=== PATIENT | female | born 1955 | race Caucasian/White ===

== ENCOUNTER 2017-07-24 20:36 | Inpatient (IN) ==
[2017-07-24] MEDS ORDERED: Ipratropium/Albuterol Neb 3 ML IH ONE (21:53)
[2017-07-24] MEDS ORDERED: 0.9 % Sodium Chloride 1,000 ML IVC ONE ×2 (21:53→23:40)
[2017-07-24] MEDS ORDERED: methylPREDNISolone 125 MG/2 ML VIAL IVP ONE (21:53)
--- NOTE | 2017-07-24 22:15 | Emergency Department Note ---
Disposition Clinical Impression: Severe sepsis Pneumonia Qualifiers: Pneumonia type: due to unspecified organism Laterality: left Lung location: lower lobe of lung Qualified Code(s): J18.1 - Lobar pneumonia, unspecified organism Asthma exacerbation Qualifiers: Asthma severity: unspecified severity Asthma persistence: unspecified Qualified Code(s): J45.901 - Unspecified asthma with (acute) exacerbation Disposition: Admitted As Inpatient Condition: Fair Time of Disposition: 23:48 SOB HPI - General Chief Complaint: ED Upper Respiratory Infection Stated Complaint: cough,sob,chills Time Seen by Provider: 07/24/17 21:38 Source: patient Mode of arrival: ambulatory Limitations: no limitations Nursing Notes Reviewed: Yes Vital Signs Reviewed: Yes - History of Present Illness Patient is a 61-year-old female who presents to [facility] ED with a chief complaint of difficulty breathing. States she just had bronco thermal plasty done by Dr. Montoya a few days ago. States she has had this done before but did not have any issues with it. States her grandchildren were visiting recently and they were all sick with viral syndromes. Patient was at the hospital earlier today with a family member when she started developing chills as well as a cough. States she feels like she cannot cough anything up. Denies any nausea, vomiting, chest pain, abdominal pain, problems with urination or bowel movements. Pt Subjective Complaint: shortness of breath Onset (ago): hour(s) Context: recent illness Severity: moderate Consistency/Duration: gradually worsening Improves with: nothing Worsens with: nothing Known history of: asthma Associated symptoms: Reports: fever, cough. Denies: chest pain Treatment prior to arrival: bronchodilator Cough present: Yes Sputum production: No Sputum Amount: None - Related Data Home oxygen amount: none Home Medications Medication Instructions Recorded Confirmed Albuterol Sulfate [Ventolin Hfa] 2 puff IH Q4H PRN 11/12/15 Amlodipine Besylate [Amlodipine 10 mg PO DAILY 11/12/15 Besylate] Fluticasone Propionate [Flonase 1 spr NS BID 11/12/15 07/21/17 Allergy Relief] Lovastatin [Altoprev] 40 mg PO HS 11/12/15 07/21/17 Mometasone/Formoterol [Dulera 200 2 puff IH BID 02/29/16 11/07/17 Mcg/5 Mcg Inhaler] Montelukast [Singulair] 10 mg PO DAILY 11/12/15 07/21/17 PredniSONE [Darius] 5 - 10 mg PO DAILY PRN 11/12/15 07/21/17 Theophylline Anhydrous 400 mg PO BID 11/12/15 07/21/17 [Theophylline] Aspirin 81 mg PO DAILY 07/21/17 07/21/17 Cholecalciferol (Vitamin D3) 50,000 unit PO FR 07/21/17 07/21/17 [Vitamin D] Esomeprazole Magnesium [Nexium] 40 mg PO DAILY 07/21/17 07/21/17 Fish Oil/Dha/Epa [Fish Oil 1,200 1 tab PO DAILY 07/21/17 07/21/17 mg Fish Oil] Losartan/Hydrochlorothiazide 1 tab PO DAILY 07/21/17 07/21/17 [Hyzaar 100-25 Tablet] SUMAtriptan succinate [Imitrex] 25 mg PO Q2H PRN 07/21/17 07/21/17 Verapamil HCl [Verapamil ER] 240 mg PO DAILY 07/21/17 07/21/17 predniSONE [Prednisone] 50 mg PO DAILY 07/21/17 07/21/17 Allergies Allergy/AdvReac Type Severity Reaction Status Date / Time No Known Allergies Allergy Verified 07/24/17 20:56 All systems ED: reviewed and negative except as stated. Past Medical History - Past Medical History Attestation: Yes The following information was validated with the patient. 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 EYES: EOMI, no scleral icterus. NOSE: The nose is normal in appearance without rhinorrhea RESP: Normal chest excursion with respiration; breath sounds with expiratory wheezes bilaterally CARD: Regular rhythm, without murmurs, rub or gallop; tachycardic ABD: Non-distended; non-tender, soft,without rigidity, rebound or guarding SKIN: Normal for age and race; warm and dry; no apparent lesions - General General appearance: alert, in no apparent distress Course Course Narrative: Patient seen and examined. Difficulty breathing along with fever and chills. We will do cardiopulmonary workup along with chest x-ray and flu swab. - Reevaluation(s) Reevaluation #1: Chest x-ray shows a left lower lobe pneumonia. We will go ahead and start on Rocephin and Levaquin. Patient meets criteria for sepsis. Will order another liter of fluids. Blood cultures ordered. I spoke with hospitalist Dr. Richards who has accepted patient for admission. Time: 23:45 Vital Signs Temperature 100.1 F H 07/24/17 20:53 Pulse Rate 108 07/24/17 20:53 Respiratory Rate 18 07/24/17 20:53 Blood Pressure 111/67 07/24/17 20:53 O2 Sat by Pulse Oximetry 95 07/24/17 20:53 Temperature 102.8 F H 07/24/17 21:56 Pulse Rate 108 07/24/17 23:29 Respiratory Rate 16 07/24/17 23:29 Blood Pressure 104/42 07/24/17 23:29 O2 Sat by Pulse Oximetry 93 07/24/17 23:29 Oxygen Delivery Oxygen Delivery Nasal Cannula Shortness of Breath/Dyspnea - Medical Records Medical records reviewed: Yes I reviewed the patient's medical records. - Lab Data Lab results reviewed: Yes I reviewed the patient's lab results. Result diagrams: 07/24/17 22:29 07/24/17 22:29 Lab Results 07/24/17 07/24/17 07/24/17 Range/Units 22:29 22:29 22:29 WBC 14.8 H (4.3-11.1) K/mcL RBC 3.97 (3.82-4.97) M/mcL Hgb 11.0 L (11.5-15.4) g/dL Hct 33.5 L (35.3-44.9) % MCV 84.4 (83.0-100.0) fL MCH 27.7 L (28.0-33.3) pg MCHC 32.8 (31.6-35.5) g/dL RDW 14.3 (11.5-14.5) % Plt Count 234 (140-400) K/mcL MPV 10.8 (9.4-12.4) fL Immature Gran % 0.6 (0-4) % Seg Neutrophils % 76.6 % Lymphocytes % 14.2 % Monocytes % 8.5 % Eosinophils % 0.0 % Basophils % 0.1 % Neutrophils # 11.3 H (1.6-8.9) K/mcL Lymphocytes # 2.1 (0.6-4.6) K/mcL Monocytes # 1.3 (0.0-1.3) K/mcL Eosinophils # 0.0 (0.0-0.6) K/mcL Basophils # 0.0 (0.0-0.2) K/mcL Sodium 136 (136-145) mEq/L Potassium 3.5 (3.5-4.5) mEq/L Chloride 102 (98-109) mEq/L Carbon Dioxide 25 (19-29) mEq/L BUN 15 (7-20) mg/dL Creatinine 0.94 (0.57-1.11) mg/dL Est GFR ( Amer) > 60 (> 60) Est GFR (Non-Af Amer) > 60 (> 60) BUN/Creatinine Ratio 16 (6-26) Glucose 93 (70-99) mg/dL Calculated Osmolality 283 (280-300) Lactic Acid 2.2 (0.5-2.2) mmol/L Calcium 8.4 L (8.6-10.8) mg/dL Magnesium 1.3 L (1.6-2.6) mg/dL Troponin I (0-0.03) ng/mL B-Natriuretic Peptide (0-100) pg/mL 07/24/17 07/24/17 Range/Units 22:29 22:29 WBC (4.3-11.1) K/mcL RBC (3.82-4.97) M/mcL Hgb (11.5-15.4) g/dL Hct (35.3-44.9) % MCV (83.0-100.0) fL MCH (28.0-33.3) pg MCHC (31.6-35.5) g/dL RDW (11.5-14.5) % Plt Count (140-400) K/mcL MPV (9.4-12.4) fL Immature Gran % (0-4) % Seg Neutrophils % % Lymphocytes % % Monocytes % % Eosinophils % % Basophils % % Neutrophils # (1.6-8.9) K/mcL Lymphocytes # (0.6-4.6) K/mcL Monocytes # (0.0-1.3) K/mcL Eosinophils # (0.0-0.6) K/mcL Basophils # (0.0-0.2) K/mcL Sodium (136-145) mEq/L Potassium (3.5-4.5) mEq/L Chloride (98-109) mEq/L Carbon Dioxide (19-29) mEq/L BUN (7-20) mg/dL Creatinine (0.57-1.11) mg/dL Est GFR ( Amer) (> 60) Est GFR (Non-Af Amer) (> 60) BUN/Creatinine Ratio (6-26) Glucose (70-99) mg/dL Calculated Osmolality (280-300) Lactic Acid (0.5-2.2) mmol/L Calcium (8.6-10.8) mg/dL Magnesium (1.6-2.6) mg/dL Troponin I 0.00 (0-0.03) ng/mL B-Natriuretic Peptide 48 (0-100) pg/mL - Radiology Data Radiology results reviewed: Yes I reviewed the patient's radiology results. Chest X-Ray 07/24/17 21:53 IMPRESSION: Focal consolidation within left lower lung, most compatible with pneumonia. That must be followed to resolution. D/ / Genaro Quesada MD / Genaro Quesada MD Interpreting Provider: Genaro Quesada MD - EKG Data EKG attestation: Yes I reviewed and interpreted this EKG. EKG results narrative: EKG done at 2222 shows normal sinus rhythm with a rate of 97 beats per minute. No acute ST elevation or depression. Normal axis. EKG unchanged from prior one done 06/01/2017. Critical Care Time Critical Care Time: Yes Total Critical Care Time: 35 Attestation: Critical care performed: Time is exclusive of separately billable procedures. Time includes: direct patient care, patient reassessment, coordination of patient care, interpretation of data (laboratory data, radiology data, and respiratory data), review of patient's medical records, medical consultation and documentation of patient care. Procedures included in critical care time: Procedures excluded from critical care time: Attestation Statement - Attestation Attestation: I, Kristian Mcrae MD, personally evaluated this patient and discussed their management with the resident physician. I reviewed the resident's note and agree with the documented findings, medical decision making, and plan of care. 61-year-old female presents to the emergency department with a complaint of acute onset this evening of cough and wheezing and shortness of breath associated with chills and fever. Patient was at the hospital earlier today with someone else and said in the waiting room around a lot of people and states that she started chilling shortly afterwards. She has a history of asthma and just 3 days ago had a procedure done by her brick catcher. On examination patient is a well-developed well-nourished female in no acute distress. She is alert and oriented 3. There is no cyanosis or diaphoresis. Patient is febrile. Breath sounds are decreased bilaterally with bilateral expiratory wheezes. Heart regular with a mild tachycardia. Abdomen soft with normal bowel sounds. Labs reviewed. Chest x-ray shows a left lower lobe pneumonia. EKG normal. Blood cultures obtained and antibiotics initiated. The hospitalist, Dr. Richards, was consulted and accepted admission of the patient.
[2017-07-24 22:36] LABS: Basophils % 0.1 %; Hematocrit 33.5 % (35.3-44.9); Immature Granulocytes % 0.6 % (0-4); Lymphocytes # 2.1 K/mcL (0.6-4.6); Lymphocytes % 14.2 %; Mean Corpuscular HGB Conc 32.8 g/dL (31.6-35.5); Mean Corpuscular Hemoglobin 27.7 pg (28.0-33.3); Mean Corpuscular Volume 84.4 fL (83.0-100.0); Mean Platelet Volume 10.8 fL (9.4-12.4); Monocytes # 1.3 K/mcL (0.0-1.3); Monocytes % 8.5 %; Neutrophils # 11.3 K/mcL (1.6-8.9); Platelet Count 234 K/mcL (140-400); Red Blood Count 3.97 M/mcL (3.82-4.97); Red Cell Distribution Width 14.3 % (11.5-14.5); Segmented Neutrophils % 76.6 %
[2017-07-24] MEDS ORDERED: Levofloxacin 750 MG/150 ML 750 MG/150 ML BAG IVPB ONE (22:42)
[2017-07-24] MEDS ORDERED: cefTRIAXone 1,000 MG in Water for inj. (sterile) 10 ML IVP ONE (22:42)
[2017-07-24 22:49] LABS: BUN/Creatinine Ratio 16 (6-26); Blood Urea Nitrogen 15 mg/dL (7-20); Calcium 8.4 mg/dL (8.6-10.8); Carbon Dioxide 25 mEq/L (19-29); Chloride 102 mEq/L (98-109); Glucose 93 mg/dL (70-99); Osmolality,Calculated 283 (280-300); Potassium 3.5 mEq/L (3.5-4.5); Sodium 136 mEq/L (136-145); eGFR For African Americans > 60 (> 60); eGFR For Non-African Americans > 60 (> 60)
[2017-07-24 22:54] LABS: Magnesium 1.3 mg/dL (1.6-2.6)
[2017-07-25] MEDS ORDERED: 0.9 % Sodium Chloride 500 ML IVC ONE (00:03)
--- NOTE | 2017-07-25 03:36 | Internal Med History&Physical ---
Date of Encounter: 07/25/17 Time of Encounter: 03:00 Assessment and Plan (1) Pneumonia Current visit: Yes Status: Acute -Patient was found to have leukocytosis and chest x-ray showed focal consolidation within left lower lung, most compatible with pneumonia. -Will start patient on IV Levaquin Qualifiers: Pneumonia type: due to unspecified organism Laterality: left Lung location: lower lobe of lung Qualified Code(s): J18.1 - Lobar pneumonia, unspecified organism (2) Severe asthma Current visit: No Status: Chronic -Continue home medications Qualifiers: Asthma complication type: unspecified Qualified Code(s): J45.998 - Other asthma (3) Hypertension Current visit: Yes Status: Acute -Controlled; continue home medications. Qualifiers: Hypertension type: essential hypertension Qualified Code(s): I10 - Essential (primary) hypertension (4) Hyperlipemia Current visit: Yes Status: Acute -Continue home statin. Qualifiers: Hyperlipidemia type: unspecified Qualified Code(s): E78.5 - Hyperlipidemia , unspecified (5) GERD (gastroesophageal reflux disease) Current visit: Yes Status: Acute -Continue home PPI. Qualifiers: Esophagitis presence: esophagitis presence not specified Qualified Code(s) : K21.9 - Gastro-esophageal reflux disease without esophagitis (6) DVT prophylaxis Current visit: Yes Status: Acute -Subcutaneous heparin. Internal Medicine - H&P: HPI Admitted From: Home Plans for Post Hospital Care: Home History of present illness: Patient is a 61-year-old female with past medical history significant for asthma , hypertension and hyperlipidemia who presented to the ER on 07/25/17 with shortness of breath, chills and cough. She reports the onset of symptoms started the day of presentation and decided to come to the ER for evaluation. In the ER, patient was found to have leukocytosis and chest x-ray showed focal consolidation within left lower lung, most compatible with pneumonia. Patient will be admitted to medical surgical floor for treatment for community acquired pneumonia. Past Med Surg Social Fam HX - Past Medical History Medical history: arthritis, asthma, GERD, hyperlipidemia, hypertension, migraine , renal disease Psychiatric history: no psych history, other - Past Surgical History Surgical History: appendectomy - Social History Smoking Status: Never smoker Smokeless Tobacco Status: No Alcohol use: none Drug use: none Internal Medicine - H&P: Meds Albuterol Sulfate [Ventolin Hfa] 2 puff IH Q4H PRN 11/12/15 [History] Amlodipine Besylate [Amlodipine Besylate] 10 mg PO HS 11/12/15 [History] Fluticasone Propionate [Flonase Allergy Relief] 1 spr NS BID 11/12/15 [History] Lovastatin [Altoprev] 40 mg PO HS 11/12/15 [History] Mometasone/Formoterol [Dulera 200 Mcg/5 Mcg Inhaler] 2 puff IH BID 11/12/15 [ History] Montelukast [Singulair] 10 mg PO HS 11/12/15 [History] Theophylline Anhydrous [Theophylline] 400 mg PO BID 11/12/15 [History] Aspirin 81 mg PO DAILY 07/21/17 [History] Cholecalciferol (Vitamin D3) [Vitamin D] 50,000 unit PO FR 07/21/17 [History] Esomeprazole Magnesium [Nexium] 40 mg PO DAILY 07/21/17 [History] Fish Oil/Dha/Epa [Fish Oil 1,200 mg Fish Oil] 1 tab PO DAILY 07/21/17 [History] Losartan/Hydrochlorothiazide [Hyzaar 100-25 Tablet] 1 tab PO DAILY 07/21/17 [ History] SUMAtriptan succinate [Imitrex] 25 mg PO Q2H PRN 07/21/17 [History] Verapamil HCl [Verapamil ER] 240 mg PO DAILY 07/21/17 [History] predniSONE [Prednisone] 10 mg PO DAILY 07/21/17 [History] 3 Allergy/AdvReac Type Severity Reaction Status Date / Time No Known Allergies Allergy Verified 07/24/17 20:56 All Systems PM: A 10-system review of systems was performed and is negative for pertinent findings except as documented above in the HPI. - Constitutional Vitals: Temp Pulse Resp BP Pulse Ox 98.6 F 90 18 145/61 94 07/25/17 01:08 07/25/17 01:08 07/25/17 01:08 07/25/17 01:08 07/25/17 01:08 General appearance: Present: A&O X 3 - Head Head exam: Present: atraumatic, normocephalic - Eye Eye exam: Present: normal appearance - ENT ENT exam: Present: mucous membranes moist - Respiratory Respiratory exam: Present: rhonchi, wheezes. Absent: respiratory distress, tachypnea - Cardiovascular Cardiovascular exam: Present: RRR, +S1, +S2. Absent: diastolic murmur, gallop, rubs, systolic murmur - GI/Abdominal GI/Abdominal exam: Present: normal bowel sounds, soft, no peritoneal signs. Absent: distended, tenderness - Extremities Exam Extremities exam: Absent: pedal edema - Neurological Exam Neurological exam: Present: oriented X3 - Psychiatric Psychiatric exam: Present: normal mood - Skin Skin exam: Present: warm Internal Med - H&P Results - Labs CBC & Chem 7: 07/24/17 22:29 07/24/17 22:29
[2017-07-25] MEDS ORDERED: Acetaminophen 325 MG TABLET PO PRN (03:44)
[2017-07-25] MEDS ORDERED: Naloxone 0.4 MG/ML INJ IVP PRN (03:44)
[2017-07-25] MEDS ORDERED: SUMAtriptan succinate 25 MG TABLET PO PRN (03:47)
[2017-07-25] MEDS: *HR* Heparin 5,000 UNIT/ML VIAL SQ SCH ×2 (05:13→16:56)
[2017-07-25 06:41] LABS: Hematocrit 31.9 % (35.3-44.9); Hemoglobin 10.4 g/dL (11.5-15.4); Immature Granulocytes % 0.4 % (0-4); Lymphocytes # 0.3 K/mcL (0.6-4.6); Lymphocytes % 2.6 %; Mean Corpuscular HGB Conc 32.6 g/dL (31.6-35.5); Mean Corpuscular Hemoglobin 28.2 pg (28.0-33.3); Mean Corpuscular Volume 86.4 fL (83.0-100.0); Mean Platelet Volume 11.4 fL (9.4-12.4); Monocytes # 0.5 K/mcL (0.0-1.3); Monocytes % 3.9 %; Neutrophils # 11.9 K/mcL (1.6-8.9); Platelet Count 188 K/mcL (140-400); Red Blood Count 3.69 M/mcL (3.82-4.97); Red Cell Distribution Width 14.6 % (11.5-14.5); Segmented Neutrophils % 93.1 %
[2017-07-25 06:54] LABS: BUN/Creatinine Ratio 14 (6-26); Blood Urea Nitrogen 13 mg/dL (7-20); Carbon Dioxide 21 mEq/L (19-29); Chloride 107 mEq/L (98-109); Glucose 178 mg/dL (70-99); Magnesium 1.4 mg/dL (1.6-2.6); Osmolality,Calculated 299 (280-300); Potassium 3.6 mEq/L (3.5-4.5); Sodium 142 mEq/L (136-145); eGFR For African Americans > 60 (> 60); eGFR For Non-African Americans > 60 (> 60)
[2017-07-25] MEDS: Verapamil ER (24 HR) 240 MG TABLET.ER PO SCH (07:56)
[2017-07-25] MEDS: Levofloxacin 750 MG/150 ML 750 MG/150 ML BAG IVPB SCH (07:56)
[2017-07-25] MEDS: Losartan/HCTZ 50-12.5 TABLET PO SCH (07:56)
[2017-07-25] MEDS: Aspirin 81 MG TAB.CHEW PO SCH (07:56)
[2017-07-25] MEDS ORDERED: Fluticasone Propionate Nasal 50 MCG/SPRAY BOTTLE NS SCH (09:00)
[2017-07-25] MEDS ORDERED: predniSONE 10 MG TABLET PO SCH (09:00)
[2017-07-25] MEDS: Ipratropium/Albuterol Neb 3 ML IH SCH ×6 (11:00→22:56)
[2017-07-25] MEDS ORDERED: Albuterol 2.5 MG/3 ML NEBULIZER IH PRN (13:41)
--- NOTE | 2017-07-25 13:46 | Internal Med Progress Note ---
Date of Encounter: 07/25/17 Time of Encounter: 13:44 - Assessment and plan (1) COPD exacerbation Current Visit: Yes Status: Acute (2) Hypomagnesemia Current Visit: Yes Status: Acute (3) Pneumonia Current Visit: Yes Status: Acute Qualifiers: Pneumonia type: due to unspecified organism Laterality: left Lung location: lower lobe of lung Qualified Code(s): J18.1 - Lobar pneumonia, unspecified organism (4) Hypertension Current Visit: Yes Status: Acute Qualifiers: Hypertension type: essential hypertension Qualified Code(s): I10 - Essential (primary) hypertension - Subjective Interval history: Admitted for pneumonia and acute exacerbation of COPD. On IV Rocephin and Levaquin. Legionella titer pending. And DuoNeb's iv steroids and Mucinex. Repeat CBC CMP magnesium. Low magnesium supplemented. - Constitutional Vitals: Temp Pulse Resp BP Pulse Ox 97.8 F 79 15 112/61 95 07/25/17 11:51 07/25/17 11:51 07/25/17 11:51 07/25/17 11:51 07/25/17 11:51 General appearance: Present: A&O X 3 - Head Head exam: Present: atraumatic, normocephalic - Eye Eye exam: Present: PERRL, conjuntiva pink, sclera anicteric Pupils: Present: PERRL - Neck Neck exam general surgery: Present: supple, trachea midline. Absent: lymphadenopathy - Respiratory Respiratory exam: Present: decreased breath sounds, wheezes. Absent: accessory muscle use, rales, rhonchi - Cardiovascular Cardiovascular exam: Present: RRR, +S1, +S2. Absent: diastolic murmur, gallop, rubs, systolic murmur - GI/Abdominal GI/Abdominal exam: Present: normal bowel sounds, soft, no peritoneal signs. Absent: distended, tenderness - Extremities Exam Extremities exam: Present: warm, radial pulses palpable and symmetrical. Absent : calf tenderness, cyanotic, pedal edema - Neurological Exam Neurological exam: Present: CN II-XII intact, oriented X3, no focal deficits. Absent: pronater drift, facial droop, speech deficit - Skin Skin exam: Present: dry, intact Internal Medicine: Result - Labs CBC & Chem 7: 07/25/17 05:28 07/25/17 05:28 Labs: Short CBC 07/25/17 Range/Units 05:28 WBC 12.8 H (4.3-11.1) K/mcL Hgb 10.4 L (11.5-15.4) g/dL Hct 31.9 L (35.3-44.9) % Plt Count 188 (140-400) K/mcL Neutrophils # 11.9 H (1.6-8.9) K/mcL BMP 07/25/17 05:28 Sodium 142 Potassium 3.6 Chloride 107 Carbon Dioxide 21 BUN 13 Creatinine 0.94 Glucose 178 H Calcium 8.0 L Consult Discharge Plan - Plan Referrals: Kacey Reddy, OPERATOR HELPER [Primary Care Provider] -
[2017-07-25] MEDS: methylPREDNISolone 125 MG/2 ML VIAL IVP SCH ×4 (14:51→23:36)
[2017-07-25] MEDS: amLODIPine 5 MG TABLET PO SCH (20:26)
[2017-07-26] MEDS: Ipratropium/Albuterol Neb 3 ML IH SCH ×8 (04:21→22:49)
[2017-07-26] MEDS: *HR* Heparin 5,000 UNIT/ML VIAL SQ SCH ×2 (05:01→16:38)
[2017-07-26 05:03] LABS: Basophils % 0.1 %; Hemoglobin 10.4 g/dL (11.5-15.4); Immature Granulocytes % 0.7 % (0-4); Lymphocytes # 0.5 K/mcL (0.6-4.6); Lymphocytes % 3.2 %; Mean Corpuscular HGB Conc 32.5 g/dL (31.6-35.5); Mean Corpuscular Hemoglobin 27.6 pg (28.0-33.3); Mean Corpuscular Volume 84.9 fL (83.0-100.0); Monocytes # 0.3 K/mcL (0.0-1.3); Monocytes % 2.2 %; Neutrophils # 14.2 K/mcL (1.6-8.9); Platelet Count 222 K/mcL (140-400); Red Blood Count 3.77 M/mcL (3.82-4.97); Red Cell Distribution Width 14.3 % (11.5-14.5); Segmented Neutrophils % 93.8 %
[2017-07-26 05:18] LABS: Alanine Aminotransferase 11 Units/L (0-55); Albumin 2.5 g/dL (3.5-5.0); Albumin/Globulin Ratio 0.7 (1.1-2.2); Alkaline Phosphatase 73 Units/L (38-126); Aspartate Amino Transferase 8 Units/L (5-34); BUN/Creatinine Ratio 22 (6-26); Bilirubin,Total 0.4 mg/dL (0.2-1.2); Blood Urea Nitrogen 18 mg/dL (7-20); Calcium 8.8 mg/dL (8.6-10.8); Carbon Dioxide 25 mEq/L (19-29); Chloride 104 mEq/L (98-109); Globulin 3.4 g/dL (2.4-3.5); Glucose 153 mg/dL (70-99); Magnesium 1.9 mg/dL (1.6-2.6); Osmolality,Calculated 295 (280-300); Potassium 3.2 mEq/L (3.5-4.5); Sodium 140 mEq/L (136-145); Total Protein 5.9 g/dL (6.0-8.3); eGFR For African Americans > 60 (> 60); eGFR For Non-African Americans > 60 (> 60)
[2017-07-26] MEDS: methylPREDNISolone 125 MG/2 ML VIAL IVP SCH ×5 (07:30→23:44)
[2017-07-26] MEDS: Losartan/HCTZ 50-12.5 TABLET PO SCH (07:34)
[2017-07-26] MEDS: Aspirin 81 MG TAB.CHEW PO SCH (07:34)
[2017-07-26] MEDS: Levofloxacin 750 MG/150 ML 750 MG/150 ML BAG IVPB SCH (07:35)
[2017-07-26] MEDS: Verapamil ER (24 HR) 240 MG TABLET.ER PO SCH (07:37)
--- NOTE | 2017-07-26 15:07 | Internal Med Progress Note ---
Date of Encounter: 07/26/17 Time of Encounter: 15:06 - Assessment and plan (1) COPD exacerbation Current Visit: Yes Status: Acute (2) Hypomagnesemia Current Visit: Yes Status: Acute (3) Pneumonia Current Visit: Yes Status: Acute Qualifiers: Pneumonia type: due to unspecified organism Laterality: left Lung location: lower lobe of lung Qualified Code(s): J18.1 - Lobar pneumonia, unspecified organism (4) Hypertension Current Visit: Yes Status: Acute Qualifiers: Hypertension type: essential hypertension Qualified Code(s): I10 - Essential (primary) hypertension - Subjective Interval history: Admitted for pneumonia and acute exacerbation of COPD. On IV Rocephin and Levaquin. Legionella titer pending. And DuoNeb's iv steroids and Mucinex. Repeat CBC CMP magnesium. Low potassium supplemented. Dyspnea on exertion experienced last night. Continue IV steroids nebulizers and antibiotics. - Constitutional Vitals: Temp Pulse Resp BP Pulse Ox 98.4 F 88 17 115/56 96 07/26/17 10:45 07/26/17 10:45 07/26/17 10:45 07/26/17 10:45 07/26/17 10:45 General appearance: Present: A&O X 3 - Head Head exam: Present: atraumatic, normocephalic - Eye Eye exam: Present: PERRL, conjuntiva pink, sclera anicteric Pupils: Present: PERRL - Neck Neck exam general surgery: Present: supple, trachea midline. Absent: lymphadenopathy - Respiratory Respiratory exam: Present: CTAB, wheezes. Absent: accessory muscle use, rales, rhonchi - Cardiovascular Cardiovascular exam: Present: RRR, +S1, +S2. Absent: diastolic murmur, gallop, rubs, systolic murmur - GI/Abdominal GI/Abdominal exam: Present: normal bowel sounds, soft, no peritoneal signs. Absent: distended, tenderness - Extremities Exam Extremities exam: Present: warm, radial pulses palpable and symmetrical. Absent : calf tenderness, cyanotic, pedal edema - Neurological Exam Neurological exam: Present: CN II-XII intact, oriented X3, no focal deficits. Absent: pronater drift, facial droop, speech deficit - Skin Skin exam: Present: dry, intact Internal Medicine: Result - Labs CBC & Chem 7: 07/26/17 04:38 07/26/17 04:38 Labs: Short CBC 07/26/17 Range/Units 04:38 WBC 15.1 H (4.3-11.1) K/mcL Hgb 10.4 L (11.5-15.4) g/dL Hct 32.0 L (35.3-44.9) % Plt Count 222 (140-400) K/mcL Neutrophils # 14.2 H (1.6-8.9) K/mcL BMP 07/26/17 04:38 Sodium 140 Potassium 3.2 L Chloride 104 Carbon Dioxide 25 BUN 18 Creatinine 0.83 Glucose 153 H Calcium 8.8 Liver Function 07/26/17 Range/Units 04:38 Total Bilirubin 0.4 (0.2-1.2) mg/dL AST 8 (5-34) Units/L ALT 11 (0-55) Units/L Alkaline Phosphatase 73 (38-126) Units/L Albumin 2.5 L (3.5-5.0) g/dL Consult Discharge Plan - Plan Referrals: Kacey Reddy MARBLE HELPER [Primary Care Provider] -
--- NOTE | 2017-07-26 17:49 | Electrocardiograph Report ---
[place] [id number] Test Date: 2017-07-24 Pat Name: Dhaval Bills Department: 103 Room: 2A Gender: F Assistance Coordinator: SOFI : 1955 Requested By: Franny Frank Order Number: [id number] Reading MD: David Zuniga MD Measurements Intervals [place] Rate: 97 P: 64 MD: 130 QRS: 74 QRSD: 87 T: 57 QT: 325 QTc: 380 Interpretive Statements SINUS RHYTHM Electronically Signed On 07-26-2017 17:46:55 EST by David Zuniga MD
[2017-07-26] MEDS: amLODIPine 5 MG TABLET PO SCH (21:28)
[2017-07-27] MEDS: Ipratropium/Albuterol Neb 3 ML IH SCH ×5 (03:18→16:48)
[2017-07-27 04:53] LABS: Basophils % 0.1 %; Hematocrit 34.8 % (35.3-44.9); Hemoglobin 11.2 g/dL (11.5-15.4); Immature Granulocytes % 1.1 % (0-4); Lymphocytes # 0.5 K/mcL (0.6-4.6); Lymphocytes % 2.9 %; Mean Corpuscular HGB Conc 32.2 g/dL (31.6-35.5); Mean Corpuscular Hemoglobin 27.3 pg (28.0-33.3); Mean Corpuscular Volume 84.9 fL (83.0-100.0); Monocytes # 0.4 K/mcL (0.0-1.3); Monocytes % 2.3 %; Neutrophils # 15.7 K/mcL (1.6-8.9); Platelet Count 296 K/mcL (140-400); Red Cell Distribution Width 14.2 % (11.5-14.5); Segmented Neutrophils % 93.6 %
[2017-07-27] MEDS: *HR* Heparin 5,000 UNIT/ML VIAL SQ SCH (05:12)
[2017-07-27 05:33] LABS: Alanine Aminotransferase 11 Units/L (0-55); Albumin 2.6 g/dL (3.5-5.0); Albumin/Globulin Ratio 0.7 (1.1-2.2); Alkaline Phosphatase 73 Units/L (38-126); Aspartate Amino Transferase 7 Units/L (5-34); BUN/Creatinine Ratio 29 (6-26); Bilirubin,Total 0.2 mg/dL (0.2-1.2); Carbon Dioxide 24 mEq/L (19-29); Chloride 104 mEq/L (98-109); Globulin 3.6 g/dL (2.4-3.5); Glucose 131 mg/dL (70-99); Magnesium 1.7 mg/dL (1.6-2.6); Osmolality,Calculated 300 (280-300); Potassium 3.4 mEq/L (3.5-4.5); Sodium 141 mEq/L (136-145); Total Protein 6.2 g/dL (6.0-8.3); eGFR For African Americans > 60 (> 60); eGFR For Non-African Americans 56 (> 60)
[2017-07-27 05:35] LABS: Blood Urea Nitrogen 29 mg/dL (7-20)
[2017-07-27] MEDS: Aspirin 81 MG TAB.CHEW PO SCH (08:00)
[2017-07-27] MEDS: Levofloxacin 750 MG/150 ML 750 MG/150 ML BAG IVPB SCH (08:00)
[2017-07-27] MEDS: Verapamil ER (24 HR) 240 MG TABLET.ER PO SCH (08:00)
[2017-07-27] MEDS: methylPREDNISolone 125 MG/2 ML VIAL IVP SCH (08:00)
[2017-07-27] MEDS: Losartan/HCTZ 50-12.5 TABLET PO SCH (08:00)
[2017-07-27 11:41] VITALS: BP 123/59
--- NOTE | 2017-07-27 11:53 | Discharge Summary ---
Date of Encounter: 07/27/17 Time of Encounter: 11:49 - Discharge Diagnosis (1) COPD exacerbation Priority: Primary Status: Acute (2) Hypomagnesemia Priority: Secondary Status: Acute (3) Pneumonia Priority: Primary Status: Acute Qualifiers: Pneumonia type: due to unspecified organism Laterality: left Lung location: lower lobe of lung Qualified Code(s): J18.1 - Lobar pneumonia, unspecified organism (4) Hypertension Priority: Secondary Status: Acute Qualifiers: Hypertension type: essential hypertension Qualified Code(s): I10 - Essential (primary) hypertension - Discharge Medications Home Medications: Albuterol Sulfate [Ventolin Hfa] 2 puff IH Q4H PRN 11/12/15 [History] Amlodipine Besylate [Amlodipine Besylate] 10 mg PO HS 11/12/15 [History] Fluticasone Propionate [Flonase Allergy Relief] 50 mcg NS BID 11/12/15 [History] Lovastatin [Altoprev] 40 mg PO HS 11/12/15 [History] Mometasone/Formoterol [Dulera 200 Mcg/5 Mcg Inhaler] 2 puff IH BID 11/12/15 [ History] Montelukast [Singulair] 10 mg PO HS 11/12/15 [History] Theophylline Anhydrous [Theophylline] 400 mg PO BID 11/12/15 [History] Aspirin 81 mg PO DAILY 07/21/17 [History] Cholecalciferol (Vitamin D3) [Vitamin D] 50,000 unit PO FR 07/21/17 [History] Esomeprazole Magnesium [Nexium] 40 mg PO DAILY 07/21/17 [History] Fish Oil/Dha/Epa [Fish Oil 1,200 mg Fish Oil] 1 cap PO DAILY 07/21/17 [History] Losartan/Hydrochlorothiazide [Hyzaar 100-25 Tablet] 1 tab PO DAILY 07/21/17 [ History] SUMAtriptan succinate [Imitrex] 25 mg PO Q2H PRN 07/21/17 [History] Verapamil HCl [Verapamil ER] 240 mg PO DAILY 07/21/17 [History] predniSONE [Prednisone] 10 mg PO DAILY 07/21/17 [History] Allergies/Adverse Reactions: 3 Allergy/AdvReac Type Severity Reaction Status Date / Time No Known Allergies Allergy Verified 07/24/17 20:56 Date of admission: 07/25/17 03:44 Primary care physician: TOI Serrato Discharging clinician: Helene Noyola Anticipated date of discharge: 07/27/17 - Patient Status Disposition: Home, Self-Care Condition: Fair Functional capacity at discharge: independent ambulation Overall status at discharge: patient is progressing back to baseline - Discharge Instructions Follow Up With: Kacey Reddy, LEVI [Primary Care Provider] - - Diet and Activity Activity: resume usual activities as tolerated Diet: advance to your usual diet Hospital course: Ms. Bills is a 61 year old female Admitted for pneumonia and acute exacerbation of COPD. On IV Rocephin and Levaquin. . And DuoNeb's iv steroids and Mucinex. Low potassium supplemented. Clinically patient has improved a lot. She is ambulating now and she is without oxygen this morning and seems quite comfortable.. If Her oxygen saturation remains maintained above 90% without oxygen on ambulation she can be discharged as she is really quite adamant to go home today. We did offer her to stay for another day or 2 so that we can taper down the steroids but she would like to go home on oral medication. Informed her that there her disease process may get worse and she might have to return and she agreed that she will do so. - Time Spent with Patient Total time spent providing and/or coordinating discharge services: Greater than 30 minutes - Constitutional Vitals: Temp Pulse Resp BP Pulse Ox 97.5 F L 88 18 123/59 93 07/27/17 11:38 07/27/17 11:38 07/27/17 11:38 07/27/17 11:38 07/27/17 11:38 General appearance: Present: A&O X 3, no acute distress, answers questions appropriately - Head Head exam: Present: atraumatic, normocephalic - Eye Eye exam: Present: PERRL, conjuntiva pink, sclera anicteric Pupils: Present: PERRL - Neck Neck exam general surgery: Present: supple, trachea midline. Absent: lymphadenopathy - Respiratory Respiratory exam: Present: CTAB. Absent: accessory muscle use, rales, rhonchi, wheezes - Cardiovascular Cardiovascular exam: Present: RRR, +S1, +S2. Absent: diastolic murmur, gallop, rubs, systolic murmur - GI/Abdominal GI/Abdominal exam: Present: normal bowel sounds, soft, no peritoneal signs. Absent: distended, tenderness - Extremities Exam Extremities exam: Present: warm, radial pulses palpable and symmetrical. Absent : calf tenderness, cyanotic, pedal edema - Neurological Exam Neurological exam: Present: CN II-XII intact, oriented X3, no focal deficits. Absent: pronater drift, facial droop, speech deficit - Skin Skin exam: Present: dry, intact
== END 2017-07-27 17:45 | disposition home or self-care (01) | DRG 139 ==
LOC: EMEROO 20:36 → 2ANU 20:36
PROVIDERS: ADMIT Hospitalist; ATTEND Internal Medicine